=== PATIENT | female | born 1990 | race Caucasian/White ===

== ENCOUNTER 2023-02-13 14:01 | Outpatient (CLI) | payer OTHER, SELFPAY ==
--- NOTE | 2023-02-13 14:06 | ECG_ITS ---
Measurements Intervals [place] Rate: 68 P: 37 RI: 117 QRS: 93 QRSD: 88 T: 23 QT: 420 QTc: 447 Interpretive Statements SINUS RHYTHM WITH SHORT RI INTERVAL WITH FREQUENT VENTRICULAR PREMATURE COMPLEXES OCCUR OCCURRING IN A PATTERN OF BIGEMINY BORDERLINE RIGHT AXIS DEVIATION [QRS AXIS > 90] NONSPECIFIC T-WAVE ABNORMALITY ABNORMAL RHYTHM ECG NO PREVIOUS ECG AVAILABLE FOR COMPARISON Electronically Signed On 02-13-2023 16:17:55 CDT by Omid Alba M.D.
== END 2023-02-13 14:02 | disposition home or self-care (01) ==
LOC: ANHLAB 14:02
PROVIDERS: PCP Family Medicine; Visit Provider Nurse Practitioner Family
DX: I49.9 Cardiac arrhythmia, unspecified (principal); R94.31 Abnormal electrocardiogram [ECG] [EKG]
CPT/HCPCS: 93005

== ENCOUNTER 2023-03-19 08:00 | Outpatient (NON) | payer OTHER, SELFPAY | END 2023-03-19 08:01 | disposition home or self-care (01) | LOC: ANHLAB 03-20 10:14 | PROVIDERS: PCP Family Medicine; Visit Provider Family Medicine | DX: D50.9 Iron deficiency anemia, unspecified (principal) | CPT/HCPCS: 88305 ==

== ENCOUNTER 2023-03-19 11:15 | Day surgery (SDC) | payer OTHER, SELFPAY ==
[2023-03-04 13:00] VITALS: BMI 20.9
[2023-03-05 10:31] VITALS: BMI 20.7
--- NOTE | 2023-03-19 07:40 | WPDANESEPPF ---
Anes - Initial Pre Proc Eval Procedure: Operation Date: 03/19/23 13:00 Proposed Procedures p Esophagogastroduodenoscopy - Ameya Clay MD s Diagnostic Colonoscopy - Ameya Clay MD Date/Time: 03/19/23 07:40 Surgeon: Ameya Clay MD Pre Op Diagnosis: Diarrhea, Melena, Iron Deficient Anemia Patient Data Age: 32 Gender: F Height: 1.7 m Weight: 60 kg Allergies Allergy/AdvReac Type Severity Reaction Status Date / Time No Known Allergies Allergy Verified 03/19/23 11:46 Home Medications Medication Instructions Recorded Confirmed Type drospirenone 3 mg-ethinyl 1 tablet PO DAILY 04/02/20 03/19/23 History estradiol 0.03 mg tablet (Ocella) triamcinolone acetonide 55 mcg 1 spray intranasal . b.i.d. 04/02/20 03/19/23 History nasal spray aerosol (Nasacort) vitamin-ferrous fumarate 1 tablet PO DAILY #90 tabs 05/19/22 03/19/23 Rx 28 mg iron-folic acid 800 mcg tablet ( Vitamins with Minerals) ferrous sulfate 325 mg (65 mg 325 mg PO DAILY #90 tabs 11/17/22 03/19/23 Rx iron) tablet fexofenadine 180 mg tablet 180 mg PO DAILY 03/05/23 03/19/23 History Patient hx anesthesia problems: none Family hx anesthesia problems: none Results Review: All pre-operative results and documents have been reviewed as part of the pre-operative evaluation. [facility] Past Medical History Medical History (Updated 02/23/23 @ 15:10 by STANISLAW Romano) Abnormal EKG Aphthous ulcer of pharynx or hypopharynx Arrhythmia Blood in stool Body mass index (BMI) of 19.9 or less in adult Encounter for wellness examination in adult Endometriosis (~2017) Frequent loose stools Gingivitis Iron deficiency anemia, unspecified Iron 111 with 22% saturation and ferritin 19 with hemoglobin 14.2 on 01/02/2022. Normal vitamin B12 591 and folic acid 22.9. Migraine with aura and without status migrainosus, not intractable (~2020) new onset migraine with blurred vision for headache Otalgia of left ear Positive autoantibody screening for celiac disease Seasonal allergic rhinitis Surgical History Surgical History History of mandibular surgery (~2018) Social History Social History Smoking status: Never smoker Alcohol intake: current Drinks per week: 7 Alcohol use details: one drink everyday, beer or wine Substance use: never Substance use type: does not use Lack of Transportation: No Lack of Food: Never True Current Housing: I Have Housing Concerned About Future Housing: No Difficulty Paying Gas/Electric Bills: No Difficulty Paying for Meds: No Currently Unemployed: No Education: Bachelor's Degree Difficulty w/ Childcare or Family Care: No Living arrangements: alone Spiritual care concerns: No Anes - Eval Final PreProcedure Day of Procedure 03/19/23 07:40 Patient weight: normal Heart: regular rate and rhythm Lungs: clear to auscultation and normal air movement Airway: Mallampati scale class II Neurological: alert and oriented Last oral intake: >/= 8 hours ASA classification: II Emergent: no Anesthetic plan: proceed Anesthesia type and monitoring: general GIVS and standard monitoring Results Review: All pre-operative results and documents have been reviewed as part of the pre-operative evaluation. Informed Consent: The patient's anesthetic plan and its attendant risks and benefits were discussed with the patient/family/POA. Questions were solicited and answers provided to the satisfaction of the patient/family/POA.
[2023-03-19 11:59] VITALS: BP 104/82; PULSE 68; RESP 16; TEMP 36.8; O2SAT 100
[2023-03-19] MEDS: LACTATED RINGERS 1,000 ML 150 ML IV CONT (12:02)
--- NOTE | 2023-03-19 12:35 | PM.HPGS ---
History of Present Illness History of Present Illness Consent: Risks, benefits, and alternatives have been discussed and questions answered. Patient agrees to proceed with procedure. Chief complaint: Diarrhea, Melena, Iron Deficient Anemia Narrative: Harmony Mcgowan is a 32 year old female Who is being investigated for iron deficiency anemia. She has had some red blood her stools for the past few months but that actually has slowed down. She does report baseline bowel habits as 3-4 loose stools per day with occasional urgency. Loose stools are associated with eating. She denies any black stool, nausea, vomiting, or indigestion. She denies any abdominal pain, rectal pain or pressure. She denies any weight loss. No family hx of celiac disease/CRC/IBD. States she was diagnoses with VINICIO in 2017 and treated with vitamins and ferrous sulfate 3 days a week with improvement in anemia. Serology for celiac disease was strongly positive. Her tissue tTG was greater than 250, as was her anti bleed in IgA antibody. Review of Systems Review of Systems: All systems reviewed & are unremarkable except as noted in HPI and below PMFSH Past Medical History Medical History Abnormal EKG Aphthous ulcer of pharynx or hypopharynx Arrhythmia Blood in stool Body mass index (BMI) of 19.9 or less in adult Encounter for wellness examination in adult Endometriosis (~2017) Frequent loose stools Gingivitis Iron deficiency anemia, unspecified Iron 111 with 22% saturation and ferritin 19 with hemoglobin 14.2 on 01/02/2022. Normal vitamin B12 591 and folic acid 22.9. Migraine with aura and without status migrainosus, not intractable (~2020) new onset migraine with blurred vision for headache Otalgia of left ear Positive autoantibody screening for celiac disease Seasonal allergic rhinitis Surgical History Surgical History History of mandibular surgery (~2017) Social History Social History Smoking status: Never smoker Alcohol intake: current Drinks per week: 7 Alcohol use details: one drink everyday, beer or wine Substance use: never Substance use type: does not use Lack of Transportation: No Lack of Food: Never True Current Housing: I Have Housing Concerned About Future Housing: No Difficulty Paying Gas/Electric Bills: No Difficulty Paying for Meds: No Currently Unemployed: No Education: Bachelor's Degree Difficulty w/ Childcare or Family Care: No Living arrangements: alone Spiritual care concerns: No Meds Home Medications and Allergies Home Medications Medication Instructions Recorded Confirmed Type drospirenone 3 mg-ethinyl 1 tablet PO DAILY 04/02/20 03/19/23 History estradiol 0.03 mg tablet (Ocella) triamcinolone acetonide 55 mcg 1 spray intranasal . b.i.d. 04/02/20 03/19/23 History nasal spray aerosol (Nasacort) vitamin-ferrous fumarate 1 tablet PO DAILY #90 tabs 05/19/22 03/19/23 Rx 28 mg iron-folic acid 800 mcg tablet ( Vitamins with Minerals) ferrous sulfate 325 mg (65 mg 325 mg PO DAILY #90 tabs 11/17/22 03/19/23 Rx iron) tablet fexofenadine 180 mg tablet 180 mg PO DAILY 03/05/23 03/19/23 History Allergies Allergy/AdvReac Type Severity Reaction Status Date / Time No Known Allergies Allergy Verified 03/19/23 11:46 Vital Signs Vital Signs - 24 hr 03/19/23 11:59 Temperature 36.8 C Pulse Rate 68 Respiratory Rate 16 Blood Pressure 104/82 Pulse Oximetry 100 Oxygen Delivery Room Air Exam Const: General: alert Orientation/consciousness: patient oriented x3 Resp: Auscultation: clear to auscultation bilaterally Cardio: Rhythm: regular rhythm GI: GI Palp: Yes Soft to palpation and No Tenderness to palpation present (GI) Neuro: General: patient oriented x3 Assess
[2023-03-19 13:27] VITALS: BP 102/86; PULSE 74; RESP 16; O2SAT 100
[2023-03-19 13:37] VITALS: BP 97/67; PULSE 66; RESP 16; O2SAT 100
[2023-03-19 13:47] VITALS: BP 105/67; PULSE 61; RESP 15; O2SAT 100
== END 2023-03-19 14:07 | disposition home or self-care (01) ==
PROVIDERS: PCP Family Medicine; Visit Provider Internal Medicine Gastroenterology
PROC: 0DJ08ZZ Inspection of Upper Intestinal Tract, Via Natural or Artificial Opening Endoscopic (ICD-10-PCS; CPT 43235; principal; 2023-03-19 13:00)
PROC: 0DJD8ZZ Inspection of Lower Intestinal Tract, Via Natural or Artificial Opening Endoscopic (ICD-10-PCS; CPT 45378; 2023-03-19 13:00)
DX: D50.9 Iron deficiency anemia, unspecified (principal); K59.1 Functional diarrhea; K21.9 Gastro-esophageal reflux disease without esophagitis
CPT/HCPCS: 45380; 43239

== ENCOUNTER 2023-04-08 08:09 | Outpatient (RCR) | payer OTHER, SELFPAY ==
[2023-04-08 08:20] VITALS: BMI 20.2
[2023-04-08 08:21] VITALS: BMI 20.2
== END 2023-06-22 10:27 | disposition home or self-care (01) ==
LOC: ANHDMC 08:09
PROVIDERS: PCP Family Medicine; Visit Provider Internal Medicine Gastroenterology
DX: K90.0 Celiac disease (principal); Z71.3 Dietary counseling and surveillance
CPT/HCPCS: 97802